=== PATIENT | female | born 1945 | race Caucasian/White ===

== ENCOUNTER 2018-01-30 10:50 | Emergency (ER) | payer MEDICARE, OTHER ==
[~2018-01-30] VITALS: Ht 165.1 cm; Wt 61.2 kg
[~2018-01-30 10:50] MED LIST: ACEBUTCAFT PO; ALEVE PM PO; ASCO500 PO; CALCAVITDA; CALCAVITDA PO; CALCIT950 PO; CITA20 PO; CYAN1000 PO; Citalopram HBr40 MG PO; DIAZ5 PO; DIPATRL; GABA300 PO; HYDR1TAB94 PO; META800; METO10 PO; MULT50FEL; MULVITMINF PO; MYRBETRIQ25 MG PO; Miralax17 GM PO; NAPR500; Naprosyn500 MG PO; Norco 5-325 Ta1 EACH PO; OMEP20ER PO; OMEPRAZOLE CAP 20M; OXYACE5T PO; OXYC5; OXYC5 PO; Omeprazole20 M1 PO; PRESERVISION A1 EACH; PROC10 PO; PROM25 PO; Percocet 5-3251 EACH PO; QUET100 PO; QUETIAPINE FUM100 MG PO; SERT50 PO; Sleep Aid25 M1; TIZANIDINE HCL2 MG PO; TOCO400 PO; XIIDRA1 EACH OP; [UNRECOGNIZED DRUG - REMARK]; [UNRECOGNIZED DRUG - REMARK]; [UNRECOGNIZED DRUG - REMARK] PO
== END 2018-01-30 13:39 | disposition home or self-care (01) ==
LOC: ER 10:50
DX: G43.909 Migraine, unspecified, not intractable, without status migrainosus (principal); F32.9 Major depressive disorder, single episode, unspecified; F17.210 Nicotine dependence, cigarettes, uncomplicated; Z79.899 Other long term (current) drug therapy
CPT/HCPCS: 96374; 96375; 99282-25; J1100; J1200; J1885; J2765; J7030

== ENCOUNTER 2018-04-14 13:19 | Emergency (ER) | payer MEDICARE, OTHER ==
[~2018-04-14] VITALS: Ht 165.1 cm; Wt 61.2 kg
[2018-04-14] MEDS ORDERED: Percocet 5-3251 EACH PO (14:30)
[2018-04-14] MEDS ORDERED: METCAR500 PO (14:44)
== END 2018-04-14 14:45 | disposition home or self-care (01) ==
LOC: ER 13:19
DX: S42.252A Displaced fracture of greater tuberosity of left humerus, initial encounter for closed fracture (principal); F32.9 Major depressive disorder, single episode, unspecified; F17.210 Nicotine dependence, cigarettes, uncomplicated; Z79.899 Other long term (current) drug therapy; W18.30XA Fall on same level, unspecified, initial encounter
CPT/HCPCS: 73060; 99283-25

== ENCOUNTER 2018-09-25 06:45 | Day surgery (SDC) | payer MEDICARE, OTHER ==
[~2018-09-25] VITALS: Ht 165.1 cm; Wt 60.8 kg
[~2018-09-25 06:45] MED LIST changes: +AREDS PO; +BLINK TEARS BOTHEYES; +CHOL10002 PO; +HAIR FORMULA T1 EACH PO; +METCAR500 PO; +ONE A DAY PO; +VITAMIN B122500 MC1 PO; +XYZAL5 MG PO; +[UNRECOGNIZED DRUG - OTHER] PO
--- NOTE | 2018-09-25 07:25 | NUR ---
History, Chart, Medications and Allergies reviewed before start of procedure. Patient confirms NPO status and agrees with scheduled surgery.
--- NOTE | 2018-09-25 08:04 | NUR ---
Patient reports completing Chlorhexadine shower X2 prior to admission to hospital. Surgical site prepped with 2% Chlorhexidine cloth wipe.
--- NOTE | 2018-09-25 08:20 | NUR ---
PATIENT GAVE HER GLASSES TO HER PRIOR TO GOING TO OR.
--- NOTE | 2018-09-25 12:02 | NUR ---
PT TO STEP APPROX 5 MINUTES AGO. C/O PAIN, NAUSEA, AND HAVING TO "PEE" IMMEDIATELY FALLS ASLEEP IF LEFT UNDISTURBED. PT RECEIVED IV FENTANYL JUST PRIOR TO TRANSFER TO UNIT. WILL MONITOR PAIN LEVELS. SATS 88-91 ON RA. OXYGEN AT 2 L APPLIED VIA NC.
--- NOTE | 2018-09-25 12:23 | NUR ---
TO BEDSIDE. PT STATES NAUSEA IMPROVED. SIPPING ON APPLE JUICE AT THIS TIME. EATING CRACKERS.
--- NOTE | 2018-09-25 12:28 | NUR ---
MEDICATED WITH ONE PERCOCET TABLET PER MD ORDERS FOR PAIN LEVEL OF 8/10
--- NOTE | 2018-09-25 12:40 | NUR ---
PT AMBULATED TO BATHROOM AND BACK WITH ASSIST. C/O PAIN WITH ACTIVITY BUT STEADY ON FEET. + VOID AND RETURN TO [facility]. ASSIST IN DRESSING PATIENT AT THIS TIME.
--- NOTE | 2018-09-25 12:52 | NUR ---
REVIEWED DISCHARGE INSTRUCTIONS WITH PATIENT AND , BOTH OF WHOM VERBALIZE UNDERSTANDING OF ALL. PT STATES SHE WANTS TO GO HOME AND FEELS ABLE TO DO SO WITHOUT DIFFICULTY. IV D/C x 2 SITES - TIPS INTACT. PT TOLERATED WELL. DC HOME VIA W/C WITH TO DRIVE HER.
--- NOTE | 2018-09-25 12:53 | NUR ---
PRIOR TO DC PT C/O "INDIGESTION" PAINS. DENIED CP OR RADIATION UP NECK, DOWN ARM, OR INTO BACK. STATES "IT GOES INTO MY STOMACH" "I THINK IT'S THE NAUSEA, JUST INDIGESTION." NO FURTHER ISSUES NOTED. VSS. NO BLEEDING NOTED.
--- NOTE | 2018-09-29 13:26 | NUR ---
09/29/18 1326 Bridget May OUT OF PACU TIME ENTERED PER PATIENT RECORD FOR PURPOSES OF VERIFICATION.
== END 2018-09-25 12:00 | disposition home or self-care (01) ==
LOC: ORSCMMR 06:45 → ORD 08:30 → ORSCMMR 08:30
PROVIDERS: Surgery
PROC: 0WUF4JZ Supplement Abdominal Wall with Synthetic Substitute, Percutaneous Endoscopic Approach (ICD-10-PCS; principal; 2018-09-25 08:30)
PROC: 8E0W4CZ Robotic Assisted Procedure of Trunk Region, Percutaneous Endoscopic Approach (ICD-10-PCS; principal; 2018-09-25 08:30)
DX: K43.0 Incisional hernia with obstruction, without gangrene (principal); K21.9 Gastro-esophageal reflux disease without esophagitis; F17.210 Nicotine dependence, cigarettes, uncomplicated; F32.9 Major depressive disorder, single episode, unspecified; Z79.899 Other long term (current) drug therapy
CPT/HCPCS: 49655; S2900; C1781; J0330; J0690; J1100; J2250; J2370; J2405; J2710; J2765; J3010; J7120

== ENCOUNTER 2019-01-29 08:14 | Emergency (ER) | payer MEDICARE, OTHER ==
[~2019-01-29] VITALS: Ht 165.1 cm; Wt 59.9 kg
== END 2019-01-29 11:10 | disposition home or self-care (01) ==
LOC: ER 08:14
DX: G43.909 Migraine, unspecified, not intractable, without status migrainosus (principal); J02.9 Acute pharyngitis, unspecified; F32.9 Major depressive disorder, single episode, unspecified; F17.210 Nicotine dependence, cigarettes, uncomplicated; Z79.899 Other long term (current) drug therapy
CPT/HCPCS: 96361; 96374; 96375; 99283-25; J1200; J1885; J2765; J7030

== ENCOUNTER 2019-07-26 12:41 | Emergency (ER) | payer OTHER ==
[~2019-07-26] VITALS: Ht 165.1 cm; Wt 59.0 kg
[2019-07-26 13:48] LABS: BASOPHILS ABSOLUTE AUTO 0.03 K/mm3 (0.00-0.23); BASOPHILS PERCENT AUTO 0 % (0-2); EOSINOPHILS ABSOLUTE AUTO 0.07 K/mm3 (0.00-0.68); EOSINOPHILS PERCENT AUTO 1 % (0-6); Hematocrit 45.2 % (33.0-51.0); IMMATURE GRAN ABSOLUTE AUTO 0.02 K/mm3 (0.00-0.10); IMMATURE GRAN PERCENT AUTO 0 % (0-1); LYMPHOCYTES ABSOLUTE AUTO 1.87 K/mm3 (0.84-5.20); LYMPHOCYTES PERCENT AUTO 19 % (21-46); MONOCYTES ABSOLUTE AUTO 0.53 K/mm3 (0.16-1.47); MONOCYTES PERCENT AUTO 5 % (4-13); Mean Corpuscular HGB 31.8 pg (26.0-34.0); Mean Corpuscular HGB Conc 33.2 g/dL (31.5-36.5); Mean Corpuscular Volume 96 fL (80-100); Mean Platelet Volume 10.2 fL (9.1-12.4); NEUTROPHILS ABSOLUTE AUTO 7.32 K/mm3 (1.96-9.15); NEUTROPHILS PERCENT AUTO 74 % (41-73); Platelet Count 266 K/mm3 (150-400); RDW Coefficient Variation 12.3 % (11.7-14.2); RDW Standard Deviation 44.1 fL (35.1-46.3); Red Blood Cell Count 4.72 M/mm3 (3.80-5.20); White Blood Cell Count 9.84 K/mm3 (4.00-11.30)
[2019-07-26 14:57] LABS: Alanine Aminotransfer (ALT/SGP 18 U/L (12-78); Albumin, Blood 3.9 g/dL (3.4-5.0); Albumin/Globulin Ratio 1.1 (0.8-1.8); Alk Phos 69 U/L (50-136); Anion Gap 7 mmol/L (6-16); Aspartate Aminotrans (AST/SGOT 14 U/L (12-37); Bilirubin, Total 0.5 mg/dL (0.1-1.0); Blood Urea Nitrogen 21 mg/dL (8-24); Bun/Creatinine Ratio 25.5 (12.0-20.0); CO2, Blood 27 mmol/L (21-32); Calcium, Blood 9.3 mg/dL (8.5-10.1); Chloride, Blood 106 mmol/L (98-108); Creatinine, Blood 0.82 mg/dL (0.40-1.00); Globulin, Blood 3.4 g/dL (2.2-4.0); Glomerular Filtration Rate >60 (60-); Glucose, Blood 101 mg/dL (70-99); Potassium, Blood 4.4 mmol/L (3.5-5.5); Sodium, Blood 140 mmol/L (136-145); Total Protein, Blood 7.3 g/dL (6.4-8.2); Troponin I <0.015 ng/mL (0.000-0.040)
[2019-07-26] MEDS ORDERED: HYDR1TAB94 PO (16:11)
[2019-07-26] MEDS ORDERED: IBUP600 PO (16:11)
== END 2019-07-26 16:12 | disposition home or self-care (01) ==
LOC: ER 12:41
PROVIDERS: Emergency Medicine
DX: S22.42XA Multiple fractures of ribs, left side, initial encounter for closed fracture (principal); S01.81XA Laceration without foreign body of other part of head, initial encounter; S01.411A Laceration without foreign body of right cheek and temporomandibular area, initial encounter; F17.210 Nicotine dependence, cigarettes, uncomplicated; F32.9 Major depressive disorder, single episode, unspecified; G43.909 Migraine, unspecified, not intractable, without status migrainosus; R01.1 Cardiac murmur, unspecified; Z79.899 Other long term (current) drug therapy; W19.XXXA Unspecified fall, initial encounter
CPT/HCPCS: 12014; 36415; 70450; 71101; 80053; 84484; 85025; 93005; 93010; 99284-25; A9270

== ENCOUNTER 2020-08-04 12:04 | Emergency (ER) | payer OTHER ==
[~2020-08-04] VITALS: Ht 165.1 cm; Wt 60.3 kg
[~2020-08-04 12:04] MED LIST changes: +IBUP600 PO
[2020-08-04] MEDS ORDERED: GABA100 PO (12:28)
[2020-08-04] MEDS ORDERED: PROM25 PO (14:48)
[2020-08-04] MEDS ORDERED: CELE100 PO (14:48)
== END 2020-08-04 15:10 | disposition home or self-care (01) ==
LOC: ER 12:04
DX: S06.0X0A Concussion without loss of consciousness, initial encounter (principal); S16.1XXA Strain of muscle, fascia and tendon at neck level, initial encounter; Z79.899 Other long term (current) drug therapy; F17.200 Nicotine dependence, unspecified, uncomplicated; W01.198A Fall on same level from slipping, tripping and stumbling with subsequent striking against other object, initial encounter
CPT/HCPCS: 70450; 72125; 99284-25; A9270

== ENCOUNTER 2020-12-27 15:29 | Inpatient (IN) | payer MEDICARE, OTHER ==
[~2020-12-27] VITALS: Ht 162.6 cm; Wt 58.5 kg
[~2020-12-27 15:29] MED LIST changes: +CELE100 PO; +GABA100 PO
[2020-12-27] MEDS ORDERED: ZOLOFT100 M5 PO (15:43)
[2020-12-27 15:48] LABS: BASOPHILS ABSOLUTE AUTO 0.05 K/mm3 (0.00-0.23); BASOPHILS PERCENT AUTO 1 % (0-2); EOSINOPHILS PERCENT AUTO 2 % (0-6); IMMATURE GRAN ABSOLUTE AUTO 0.08 K/mm3 (0.00-0.10); IMMATURE GRAN PERCENT AUTO 1 % (0-1); LYMPHOCYTES ABSOLUTE AUTO 2.39 K/mm3 (0.84-5.20); LYMPHOCYTES PERCENT AUTO 26 % (21-46); MONOCYTES ABSOLUTE AUTO 0.59 K/mm3 (0.16-1.47); MONOCYTES PERCENT AUTO 7 % (4-13); Mean Corpuscular HGB 31.7 pg (26.0-34.0); Mean Corpuscular HGB Conc 33.3 g/dL (31.5-36.5); Mean Corpuscular Volume 95 fL (80-100); Mean Platelet Volume 10.3 fL (9.1-12.4); NEUTROPHILS ABSOLUTE AUTO 5.73 K/mm3 (1.96-9.15); NEUTROPHILS PERCENT AUTO 63 % (41-73); Platelet Count 244 K/mm3 (150-400); RDW Coefficient Variation 13.2 % (11.7-14.2); RDW Standard Deviation 46.5 fL (35.1-46.3); White Blood Cell Count 9.04 K/mm3 (4.00-11.30)
[2020-12-27 16:14] LABS: Alanine Aminotransfer (ALT/SGP 22 U/L (12-78); Albumin, Blood 3.3 g/dL (3.4-5.0); Alk Phos 56 U/L (50-136); Anion Gap 2 mmol/L (6-16); Aspartate Aminotrans (AST/SGOT 17 U/L (12-37); Bilirubin, Total 0.4 mg/dL (0.1-1.0); Blood Urea Nitrogen 16 mg/dL (8-24); Bun/Creatinine Ratio 21.6 (12.0-20.0); CO2, Blood 31 mmol/L (21-32); Calcium, Blood 8.5 mg/dL (8.5-10.1); Chloride, Blood 106 mmol/L (98-108); Creatinine, Blood 0.74 mg/dL (0.40-1.00); Globulin, Blood 3.2 g/dL (2.2-4.0); Glomerular Filtration Rate >60 (60-); Glucose, Blood 112 mg/dL (70-99); Sodium, Blood 139 mmol/L (136-145); Total Protein, Blood 6.5 g/dL (6.4-8.2)
[2020-12-27] MEDS ORDERED: NEURONTIN300 MG PO (17:36)
[2020-12-27] MEDS ORDERED: OMEP20ER PO (17:37)
[2020-12-27 19:23] LABS: SARS-Cov-2 (COVID-19) PCR, MMC NEGATIVE (NEGATIVE)
[2020-12-28 04:40] LABS: BASOPHILS ABSOLUTE AUTO 0.04 K/mm3 (0.00-0.23); BASOPHILS PERCENT AUTO 0 % (0-2); EOSINOPHILS ABSOLUTE AUTO 0.19 K/mm3 (0.00-0.68); EOSINOPHILS PERCENT AUTO 2 % (0-6); Hematocrit 36.4 % (33.0-51.0); Hemoglobin 12.5 g/dL (11.5-16.0); IMMATURE GRAN ABSOLUTE AUTO 0.02 K/mm3 (0.00-0.10); IMMATURE GRAN PERCENT AUTO 0 % (0-1); LYMPHOCYTES ABSOLUTE AUTO 1.43 K/mm3 (0.84-5.20); LYMPHOCYTES PERCENT AUTO 15 % (21-46); MONOCYTES ABSOLUTE AUTO 0.64 K/mm3 (0.16-1.47); MONOCYTES PERCENT AUTO 7 % (4-13); Mean Corpuscular HGB 32.1 pg (26.0-34.0); Mean Corpuscular HGB Conc 34.3 g/dL (31.5-36.5); Mean Corpuscular Volume 93 fL (80-100); Mean Platelet Volume 10.4 fL (9.1-12.4); NEUTROPHILS ABSOLUTE AUTO 6.99 K/mm3 (1.96-9.15); NEUTROPHILS PERCENT AUTO 75 % (41-73); Platelet Count 196 K/mm3 (150-400); RDW Coefficient Variation 13.2 % (11.7-14.2); RDW Standard Deviation 45.4 fL (35.1-46.3); White Blood Cell Count 9.31 K/mm3 (4.00-11.30)
[2020-12-28 04:56] LABS: Anion Gap 3 mmol/L (6-16); Blood Urea Nitrogen 15 mg/dL (8-24); Bun/Creatinine Ratio 17.8 (12.0-20.0); CO2, Blood 29 mmol/L (21-32); Calcium, Blood 8.2 mg/dL (8.5-10.1); Chloride, Blood 105 mmol/L (98-108); Creatinine, Blood 0.84 mg/dL (0.40-1.00); Glomerular Filtration Rate >60 (60-); Glucose, Blood 102 mg/dL (70-99); Potassium, Blood 4.3 mmol/L (3.5-5.5); Sodium, Blood 137 mmol/L (136-145)
--- NOTE | 2020-12-28 07:16 | NUR ---
SHIFT SUMMARY S/P R HIP FX, A/O X4, VSS, TOLERATING PO BUT NPO SINCE MIDNIGHT PENDING SURGERY, PAIN WELL MANAGED PER EMAR ORTHO CONSULT W/ POSSIBLE SURGERY TODAY. NO ACUTE EVENTS THIS SHIFT, CALL LIGHT IN REACH, REPORT GIVEN TO DAY RN.
--- NOTE | 2020-12-28 11:50 | NUR ---
R FOREARM 18G IV FLUSHES WELL, L AC IV LEAKING AND REMOVED
--- NOTE | 2020-12-28 12:15 | NUR ---
History, Chart, Medications and Allergies reviewed before start of procedure.Patient confirms NPO status and agrees with scheduled surgery. Pre-Op teaching done. Pt verbalizes understanding.
--- NOTE | 2020-12-28 15:57 | NUR ---
POST OP S/P R DEX HIP ARTHRO. AWAKE, DENIES ANY PAIN AT THIS TIME, DENIES ANY NEW NUMBNESS OR TINGLING, ABLE TO MOVE TOES, LUNGS CLEAR T/O, HRR, ACTIVE BT'S X4, ABD SOFT, CLEAR LIQUIDS GIVEN, CONT. TO MONITOR VS AND ANY CHANGES.
--- NOTE | 2020-12-28 18:37 | NUR ---
SUMMARY DENIES ANY PAIN, DSG C/D/I, TOLERATED REGULAR DIET WELL, STATES "I FEEL 90% BETTER" PT RESTED MOST OF AFTERNOON, NO ACUTE CHANGES THIS SHIFT.
--- NOTE | 2020-12-29 05:55 | NUR ---
SHIFT SUMMARY POD1 R DEX HIP, A/O X4, VSS, TOLERATING PO, VOIDING VIA PIKE, ATTEMPTED BM ON BEDPAN BUT HAD NO OUTPUT, PAIN WELL MANAGED PER EMAR, NO ACUTE EVENTS THIS SHIFT. CALL LIGHT IN REACH, WILL CTM AND REPORT TO ONCOMING DAY RN.
--- NOTE | 2020-12-29 13:29 | NUR ---
12/29/20 1329 Elmira King VERIFICATIONS: EDIT CHART.
--- NOTE | 2020-12-29 18:01 | NUR ---
SUMMARY DSGS ON L SHOULDER, LLE, RLE AND R ARM CHANGED TODAY, PT TOLERATED WELL VSS, ATTMEPTED TO WORK W/ PT & OT TODAY BUT PT UNABLE TO STAND AND BEAR WEIGHT ON RLE DUE INCREASED PAIN IN R LATERAL AREA OF THE INCISION, PT DESCRIBES PAIN "ELECTRIC SHOCK" AND RELIEVED BY LYING BACK DOWN AND REST, PT ASSISTED TO DANGLE TODAY BUT HAS NOT BEEN UP, DR. GONZALES NOTIFIED, SEE NEW ORDERS FOR XRAYS, REPORTS NECK PAIN IS "BETTER" NO OTHER CHANGES THIS SHIFT.
--- NOTE | 2020-12-29 18:53 | NUR ---
PT REFUSED XRAY ORDERED, DR. GONZALES NOTIFIED.
--- NOTE | 2020-12-29 19:22 | NUR ---
SUMMARY PT/OT ATTEMPTED TO GET PT OOB TODAY BUT PT WAS NOT ABLE TO STAND DUE TO INCREASED PAIN ON R HIP AREA, PT DESCRIBES PAIN LIKE AN "ELECTRIC SHOCK" DOWN HER R HIP AND THIGH AREA, STATES PAIN IS MORE ON THE R LATERAL SIDE OF THE INCISION, DR. GONZALES NOTIFIED, XRAY ORDERED BUT THEN PT REFUSED TO GO STATES SHE DOESN'T WANT TO HAVE TO GET ON THE GURNEY AND THE PAIN WAS MORE INCISIONAL, DR. GONZALES NOTIFIED, PT ABLE TO DANGLE, REPORTS PAIN ON NECK IS "BETTER" NO OTHER CHANGES THIS SHIFT.
--- NOTE | 2020-12-30 06:25 | NUR ---
SHIFT SUMMARY POD2 R LUZMARIA, A/O X4, VSS, TOLERATING PO, VOIDING VIA PIKE TO BE REMOVED TODAY PER ORDER, BOWEL CARE PROVIDED AT START OF SHIFT PROVIDED PT W/ A BM THIS SHIFT, PAIN WELL MANAGED PER PATIENT REPORT. PLAN TO DC TO SNF TODAY. CALL LIGHT IN REACH, WILL CTM AND REPORT TO ONCOMING DAY RN.
--- NOTE | 2020-12-30 10:28 | NUR ---
DISCHARGE PLANNING: COVID TEST SENT PRIOR TO DC TO SNF. PIKE DC'D, AWAITING PT VOID. PT INCONTINENT AT BASELINE. ATTENDS ON.
[2020-12-30 12:00] LABS: SARS-Cov-2 (COVID-19) PCR, MMC NEGATIVE (NEGATIVE)
[2020-12-30] MEDS ORDERED: Acetaminophen325 M1 PO (13:30)
[2020-12-30] MEDS ORDERED: DOCU100 PO (13:31)
[2020-12-30] MEDS ORDERED: FAMO20 PO (13:31)
[2020-12-30] MEDS ORDERED: Nicoderm Cq1 EACH TOP (13:35)
[2020-12-30] MEDS ORDERED: OXAYDO5 M2 PO (13:35)
[2020-12-30] MEDS ORDERED: SENN187 PO (13:36)
--- NOTE | 2020-12-30 14:06 | NUR ---
DISCHARGE: PT DC TO SNF AT THIS TIME. NO IV. ORDERS AND MEDICATION FAXED TO FACILITY. REPORT CALLED TO ACCEPTING RN. PT TRANSFER VIA [facility].
== END 2020-12-30 14:06 | DRG 522 ==
LOC: ER 15:29 → SURS 17:30
PROVIDERS: Emergency Medicine; Nurse Practitioner Acute Care; Orthopaedic Surgery; ADMIT Internal Medicine
PROC: 0SRR0JA Replacement of Right Hip Joint, Femoral Surface with Synthetic Substitute, Uncemented, Open Approach (ICD-10-PCS; principal; 2020-12-28 12:30)
DX: S72.001A Fracture of unspecified part of neck of right femur, initial encounter for closed fracture (principal); Z20.822 Contact with and (suspected) exposure to COVID-19; R01.1 Cardiac murmur, unspecified; G43.909 Migraine, unspecified, not intractable, without status migrainosus; F32.9 Major depressive disorder, single episode, unspecified; G47.00 Insomnia, unspecified; F17.210 Nicotine dependence, cigarettes, uncomplicated; K21.9 Gastro-esophageal reflux disease without esophagitis; M54.9 Dorsalgia, unspecified; N39.3 Stress incontinence (female) (male); G89.29 Other chronic pain; W18.30XA Fall on same level, unspecified, initial encounter; Z79.899 Other long term (current) drug therapy; Z79.1 Long term (current) use of non-steroidal anti-inflammatories (NSAID)
CPT/HCPCS: 36415; 51702; 72170; 73502; 80048; 80053; 85025; 93005; 93010; 96374-59; 96375-59; 97110; 97162; 97166; 97530; 99285-25; A9270; C1713; C1776; J0171; J0690; J0735; J1100; J1170; J1885; J2405; J2704; J2795; J3010; J7030; J7120; U0004

== ENCOUNTER 2021-02-12 07:52 | Day surgery (SDC) | payer OTHER ==
[~2021-02-12] VITALS: Ht 165.1 cm; Wt 55.8 kg
[~2021-02-12 07:52] MED LIST changes: +Acetaminophen325 M1 PO; +DOCU100 PO; +FAMO20 PO; +NEURONTIN300 MG PO; +Nicoderm Cq1 EACH TOP; +OXAYDO5 M2 PO; +SENN187 PO; +ZOLOFT100 M5 PO
--- NOTE | 2021-02-12 09:10 | NUR ---
PT IN TO DAYSURGERY BY W/C BUT ABLE TO STAND AND GET WEIGHT. ASSISTED WITH GOWN. GIVEN WARM BLANKETS UPON REQUEST. History, Chart, Medications and Allergies reviewed before start of procedure. Lungs clear T/O to Auscultation. Patient confirms NPO status and agrees with scheduled surgery. Pre-Op teaching done. Pt verbalizes understanding. Patient States Post-Procedure ride home has been arranged WITH .
--- NOTE | 2021-02-12 11:50 | NUR ---
02/12/21 1150 Janet Dozier PATIENT STATES. i DO NOT WANT TO KEEP MY HADWARE." VANDANA DOZIER RN.
--- NOTE | 2021-02-12 13:51 | NUR ---
1315- C/O NAUSEA, NO EMESIS. WILL GIVE ANTIEMETICS PER ORDER. C/O LEFT HIP PAIN, RATES 5/10, UNABLE TO DESCRIBE FURTHER, MOANING. WILL TREAT WITH ANALGESICS PER ORDER AND CONTINUE TO MONITOR FOR EFFECT. 1350- PATIENT DENIES NAUSEA, AND STATES LEFT HIP PAIN IMPROVING AND NOW RATES 4/10. RESTING QUIETLY WITH EYES CLOSED. ENCOURAGED TO COUGH AND CLEAR THROAT TO HELP IMPROVE BIOX. BIOX IMPROVES WITH COUGHING. BREATHING RA. RESP EVEN AND UNLABORED.
--- NOTE | 2021-02-12 15:15 | NUR ---
PT TO STEP c L HIP PAIN. MEDICATED c OXYCODONE 5 MG PO. NAUSEA RESOLVED p MEDS IN PACU. L HIP DRESSING CDI. PT GIVEN FOOD AND DRINK s DIFFICULTY. PT SITS AT END OF BED c ASSISTANCE, ABLE TO AMBULATE TO RESTROOM c SLOW GAIT/WALKER. INCREASED PAIN c MOVEMENT. PT DRESSED IN RESTROOM, TO WC c WALKER. GIVEN RX AND DC INSTRUCTIONS. PT VERBALIZES AN UNDERSTANDING s QUESTIONS. IV X 2 DC, CATH INTACT AND PRESSURE DRESSING APPLIED. OTD IN NAD VIA WC TO SAFE RIDE HOME. AND NEIGHBOR VERBALIZES AN UNDERSTANDING OF INSTRUCTIONS s QUESTIONS.
== END 2021-02-12 23:02 | disposition home or self-care (01) ==
LOC: ORSCMMR 07:52 → ORD 09:30 → ORSCMMR 10:30 → ORD 11:00 → ORSCMMR 23:02
PROVIDERS: Orthopaedic Surgery
PROC: 0SPB04Z Removal of Internal Fixation Device from Left Hip Joint, Open Approach (ICD-10-PCS; principal; 2021-02-12 10:30)
DX: M25.552 Pain in left hip (principal); T84.9XXA Unspecified complication of internal orthopedic prosthetic device, implant and graft, initial encounter; J44.9 Chronic obstructive pulmonary disease, unspecified; F32.9 Major depressive disorder, single episode, unspecified; F17.210 Nicotine dependence, cigarettes, uncomplicated
CPT/HCPCS: A9270; C1713; J0171; J0690; J1100; J2370; J2405; J2704; J2765; J3010; J7120

== ENCOUNTER 2021-08-17 18:26 | Emergency (ER) | payer OTHER ==
[~2021-08-17] VITALS: Ht 165.1 cm; Wt 54.4 kg
[2021-08-17 19:17] LABS: BASOPHILS ABSOLUTE AUTO 0.06 K/mm3 (0.00-0.23); BASOPHILS PERCENT AUTO 1 % (0-2); EOSINOPHILS ABSOLUTE AUTO 0.21 K/mm3 (0.00-0.68); EOSINOPHILS PERCENT AUTO 3 % (0-6); Hematocrit 41.8 % (33.0-51.0); Hemoglobin 13.9 g/dL (11.5-16.0); IMMATURE GRAN ABSOLUTE AUTO 0.02 K/mm3 (0.00-0.10); IMMATURE GRAN PERCENT AUTO 0 % (0-1); LYMPHOCYTES ABSOLUTE AUTO 2.57 K/mm3 (0.84-5.20); LYMPHOCYTES PERCENT AUTO 34 % (21-46); MONOCYTES ABSOLUTE AUTO 0.51 K/mm3 (0.16-1.47); MONOCYTES PERCENT AUTO 7 % (4-13); Mean Corpuscular HGB 31.7 pg (26.0-34.0); Mean Corpuscular HGB Conc 33.3 g/dL (31.5-36.5); Mean Corpuscular Volume 95 fL (80-100); Mean Platelet Volume 10.7 fL (9.1-12.4); NEUTROPHILS ABSOLUTE AUTO 4.14 K/mm3 (1.96-9.15); NEUTROPHILS PERCENT AUTO 55 % (41-73); Platelet Count 324 K/mm3 (150-400); RDW Coefficient Variation 13.9 % (11.7-14.2); RDW Standard Deviation 49.1 fL (35.1-46.3); Red Blood Cell Count 4.38 M/mm3 (3.80-5.20); White Blood Cell Count 7.51 K/mm3 (4.00-11.30)
[2021-08-17 19:39] LABS: Alanine Aminotransfer (ALT/SGP 13 U/L (12-78); Albumin, Blood 3.5 g/dL (3.4-5.0); Albumin/Globulin Ratio 1.1 (0.8-1.8); Alk Phos 66 U/L (50-136); Anion Gap 3 mmol/L (6-16); Aspartate Aminotrans (AST/SGOT 13 U/L (12-37); Bilirubin, Total 0.3 mg/dL (0.1-1.0); Blood Urea Nitrogen 14 mg/dL (8-24); Bun/Creatinine Ratio 18.8 (12.0-20.0); CO2, Blood 31 mmol/L (21-32); Calcium, Blood 8.9 mg/dL (8.5-10.1); Chloride, Blood 109 mmol/L (98-108); Creatinine, Blood 0.74 mg/dL (0.40-1.00); Globulin, Blood 3.1 g/dL (2.2-4.0); Glomerular Filtration Rate >60 (60-); Glucose, Blood 97 mg/dL (70-99); Potassium, Blood 3.9 mmol/L (3.5-5.5); Sodium, Blood 143 mmol/L (136-145); Total Protein, Blood 6.6 g/dL (6.4-8.2)
== END 2021-08-17 20:36 | disposition left against medical advice (07) ==
LOC: ER 18:26
PROVIDERS: Physician Assistant
DX: R07.81 Pleurodynia (principal); Z53.21 Procedure and treatment not carried out due to patient leaving prior to being seen by health care provider
CPT/HCPCS: 71045; 80053; 84484; 85025; 93005; 93010; 99284-25

== ENCOUNTER → 2022-06-24 | Outpatient (CLI) | payer OTHER ==
[2022-06-24 16:04] LABS: BASOPHILS ABSOLUTE AUTO 0.05 K/mm3 (0.00-0.23); BASOPHILS PERCENT AUTO 1 % (0-2); EOSINOPHILS PERCENT AUTO 1 % (0-6); Hematocrit 42.6 % (33.0-51.0); IMMATURE GRAN ABSOLUTE AUTO 0.03 K/mm3 (0.00-0.10); IMMATURE GRAN PERCENT AUTO 0 % (0-1); LYMPHOCYTES ABSOLUTE AUTO 2.42 K/mm3 (0.84-5.20); LYMPHOCYTES PERCENT AUTO 25 % (21-46); MONOCYTES ABSOLUTE AUTO 0.54 K/mm3 (0.16-1.47); MONOCYTES PERCENT AUTO 6 % (4-13); Mean Corpuscular HGB 33.4 pg (26.0-34.0); Mean Corpuscular HGB Conc 35.2 g/dL (31.5-36.5); Mean Corpuscular Volume 95 fL (80-100); Mean Platelet Volume 10.5 fL (9.1-12.4); NEUTROPHILS ABSOLUTE AUTO 6.39 K/mm3 (1.96-9.15); NEUTROPHILS PERCENT AUTO 67 % (41-73); Platelet Count 264 K/mm3 (150-400); RDW Coefficient Variation 12.8 % (11.7-14.2); Red Blood Cell Count 4.49 M/mm3 (3.80-5.20); White Blood Cell Count 9.53 K/mm3 (4.00-11.30)
[2022-06-24 16:22] LABS: Albumin, Blood 3.6 g/dL (3.4-5.0); Albumin/Globulin Ratio 1.1 (0.8-1.8); Bilirubin, Total 0.4 mg/dL (0.1-1.0); Calcium, Blood 8.9 mg/dL (8.5-10.1); Creatinine, Blood 0.85 mg/dL (0.40-1.00); Globulin, Blood 3.3 g/dL (2.2-4.0); Phosphorus, Blood 3.2 mg/dL (2.5-4.9); Thyroid Stimulating Hormone 0.804 uIU/mL (0.360-4.800); Total Protein, Blood 6.9 g/dL (6.4-8.2)
== END | disposition home or self-care (01) ==
LOC: LAB SHORT 15:58
PROVIDERS: Family Medicine
DX: R41.3 Other amnesia (principal)
CPT/HCPCS: 80053; 82607; 82746; 84100; 84443; 85025; 86592

== ENCOUNTER 2024-05-03 12:38 | Inpatient (IN) | payer OTHER ==
[~2024-05-03] VITALS: Ht 162.6 cm; Wt 52.3 kg
[2024-05-03 16:17] LABS: BASOPHILS ABSOLUTE AUTO 0.04 K/mm3 (0.00-0.23); BASOPHILS PERCENT AUTO 0 % (0-2); EOSINOPHILS ABSOLUTE AUTO 0.16 K/mm3 (0.00-0.68); EOSINOPHILS PERCENT AUTO 2 % (0-6); Hematocrit 42.7 % (33.0-51.0); Hemoglobin 14.5 g/dL (11.5-16.0); IMMATURE GRAN ABSOLUTE AUTO 0.03 K/mm3 (0.00-0.10); IMMATURE GRAN PERCENT AUTO 0 % (0-1); LYMPHOCYTES PERCENT AUTO 27 % (21-46); MONOCYTES ABSOLUTE AUTO 0.56 K/mm3 (0.16-1.47); MONOCYTES PERCENT AUTO 6 % (4-13); Mean Corpuscular HGB 32.4 pg (26.0-34.0); Mean Corpuscular Volume 96 fL (80-100); Mean Platelet Volume 10.3 fL (9.1-12.4); NEUTROPHILS ABSOLUTE AUTO 6.38 K/mm3 (1.96-9.15); NEUTROPHILS PERCENT AUTO 65 % (41-73); Platelet Count 376 K/mm3 (150-400); RDW Coefficient Variation 12.7 % (11.7-14.2); RDW Standard Deviation 44.9 fL (35.1-46.3); Red Blood Cell Count 4.47 M/mm3 (3.80-5.20); White Blood Cell Count 9.87 K/mm3 (4.00-11.30)
[2024-05-03 16:37] LABS: Albumin, Blood 3.4 g/dL (3.4-5.0); Bilirubin, Total 0.5 mg/dL (0.1-1.0); Bun/Creatinine Ratio 22.3 (12.0-20.0); Calcium, Blood 9.3 mg/dL (8.5-10.1); Creatinine, Blood 0.72 mg/dL (0.40-1.00); Globulin, Blood 3.5 g/dL (2.2-4.0); Potassium, Blood 4.1 mmol/L (3.5-5.5); Total Protein, Blood 6.9 g/dL (6.4-8.2)
[2024-05-03] MEDS ORDERED: Ondansetron HCl 2 MG / ML 2ML Vial IV PRN (20:15)
[2024-05-03] MEDS ORDERED: NS 1,000 ML IV SCH (20:15)
[2024-05-03] MEDS ORDERED: FLU VACC TS2024-25(6MOS UP)/PF 45 MCG/0.5 ML SYRINGE IM ONE (20:15)
[2024-05-03] MEDS ORDERED: Acetaminophen 325 MG TABLET PO PRN (20:20)
--- NOTE | 2024-05-03 21:00 | NUR ---
ARRIVAL PT NEW ADMIT FROM THE ER W/L HIP FX. ARRIVED A/OX3-4. PLEASENT AND COOPERATIVE. LLE NOTED TO BE THE SAME LENGTH RLE. PT ABLE TO MOVE THIS EXTREMITY W/ EXTREME PAIN. GOOD PULSE. UNABLE TO COMPLETE MED REC, NEED TO CONTACT PTS PHARMACY. [facility] [place]. PLAN TO MEDICATE PER EMAR, REPOSITION TOLLERATED, IVF PER EMAR, AND PAIN MEDICATION.
[2024-05-03 21:59] VITALS: BP 125/69
[2024-05-04 02:09] VITALS: BP 114/68
[2024-05-04 02:10] VITALS: BP 114/68
[2024-05-04 02:44] LABS: Influenza A, PCR NEGATIVE (NEGATIVE); Influenza B, PCR NEGATIVE (NEGATIVE); Resp Syncytial Virus, PCR NEGATIVE (NEGATIVE); SARS-Cov-2 (COVID-19) PCR, MMC NEGATIVE (NEGATIVE)
--- NOTE | 2024-05-04 04:11 | NUR ---
SHIFT SUMMARY VSS. PT HAS BEEN NPO SINCE 0000 IN PREPERATION FOR SURGERY TODAY. SURGICAL [place]OWN COMPLETE. PT MEDICATED WITH TYLENOL FOR A HEADACHE. LLE REMAINS PAINFUL BUT TOLLERABLE. NO ACUTE EVENTS T/O THE NIGHT.
[2024-05-04] MEDS ORDERED: Omeprazole 20 MG CapCR PO SCH (06:00)
[2024-05-04 07:54] VITALS: BP 121/80
[2024-05-04] MEDS ORDERED: Sertraline HCl 100 MG Tab PO SCH (09:00)
[2024-05-04 15:01] VITALS: BP 128/73
[2024-05-04] MEDS ORDERED: CeFAZolin Sodium 2,000 MG in NS 100 ML IV SCH (15:55)
[2024-05-04] MEDS ORDERED: Lactated Ringer's 1,000 ML IV SCH (15:55)
--- NOTE | 2024-05-04 18:21 | NUR ---
Shift Summary Pt resting in bed throughout the day. Respirations even and unlabored. Advanced to regular diet once plans for surgery were established for later this week. VSS. PPP. A&O 2-3, forgetful. Reoriented as needed throughout the day. Pain managed. Eating/drinking/voiding.
[2024-05-04 20:33] VITALS: BP 117/75
[2024-05-05 04:15] VITALS: BP 142/66
[2024-05-05 04:49] LABS: Hemoglobin 12.4 g/dL (11.5-16.0); Mean Corpuscular HGB Conc 33.5 g/dL (31.5-36.5); Mean Corpuscular Volume 96 fL (80-100); Mean Platelet Volume 10.1 fL (9.1-12.4); Platelet Count 304 K/mm3 (150-400); RDW Coefficient Variation 12.6 % (11.7-14.2); RDW Standard Deviation 43.8 fL (35.1-46.3); Red Blood Cell Count 3.87 M/mm3 (3.80-5.20); White Blood Cell Count 8.62 K/mm3 (4.00-11.30)
--- NOTE | 2024-05-05 06:23 | NUR ---
SHIFT SUMMARY NOC. PT A/O X3, UNABLE TO STATE DATE/TIME, PT FORGETFUL AT TIMES. PT ADMITTED FOR LEFT FEMORAL NECK FX. PLAN IS FOR SURGICAL INTERVENTION 05/06/24. PT MEDICATED FOR PAIN X1 WITH REPORTED RELIEF OF SX. PT INCONTINENT OF URINE, PUREWICK PLACED TO PROTECT SKIN. BED IN LOWEST POSITION, CALL LIGHT IN REACH.
[2024-05-05 07:15] VITALS: BP 137/74
[2024-05-05 14:11] VITALS: BP 111/60
--- NOTE | 2024-05-05 17:23 | NUR ---
Shift Summary No acute events noted today. Purewick remains in place. A&O x3. Becomes forgetful at times. Pleasent mood. VSS. PPP. Wiggles toes. Denies n/t. Eating/drinking/voiding without issues. Denies n/v. Pain managed at this time. Bed alarm on. Call light within reach.
[2024-05-05 19:09] VITALS: BP 122/61
[2024-05-06] VITALS (15 sets, daily range): BP systolic 108–167; BP diastolic 56–91
--- NOTE | 2024-05-06 05:27 | NUR ---
SHIFT SUMMARY NOC. PT A/OX3, UNABLE TO STATE DATE/TIME. PT ADMITTED FOR LEFT FEMORAL NECK FX. PLAN FOR SURGERY TODAY. PT NPO SINCE 0000. PT MEDICATED FOR PAIN X1 WITH REPORTED RELIEF OF SX. PT INCONTINENT OF URINE, PUREWICK IN PLACE. BED ALARM SET FOR SAFETY, PT ON BEDREST. BED IN LOWEST POSITION, CALL LIGHT IN REACH.
--- NOTE | 2024-05-06 11:55 | NUR ---
PT TO DAY SURGERY AT THIS TIME.
[2024-05-06] MEDS ORDERED: Lactated Ringer's 1,000 ML IV SCH (12:00)
[2024-05-06] MEDS ORDERED: Peg 400/Hypromellose/Glycerin 15 DROP/ML BTL BOTHEYES PRN (12:15)
[2024-05-06] MEDS ORDERED: CeFAZolin Sodium 2,000 MG in NS 100 ML IV SCH ×2 (12:20→21:00)
[2024-05-06] MEDS ORDERED: CeFAZolin Sodium 2,000 MG VIAL ONE (12:33)
[2024-05-06] MEDS ORDERED: Ipratropium/Albuterol SulF 2.5-0.5MG/3 ML Amp INH SCH (12:40)
[2024-05-06] MEDS ORDERED: Midazolam HCl 1MG / ML 2ML Vial IV SCH (12:40)
[2024-05-06] MEDS ORDERED: Bupivacaine 0.5% HCl 5 MG/ML 30MLVIAL ONE (12:53)
[2024-05-06] MEDS ORDERED: EpiNEPhrine 1 MG/1 ML 1ML Vial ONE (12:53)
[2024-05-06] MEDS ORDERED: propofoL 20 ML IV ONE (12:57)
[2024-05-06] MEDS ORDERED: FentaNYL Citrate 50 MCG/ML 2 ML Injection ONE (12:58)
[2024-05-06] MEDS ORDERED: Phenylephrine HCl 10mg/ml 1 ml Vial ONE (13:04)
[2024-05-06] MEDS ORDERED: Rocuronium Bromide 10 MG/ML 5ML Injection IV ONE (13:04)
[2024-05-06] MEDS ORDERED: SuccINYLCHOLINE Chloride 100 MG/5 ML 5MLSYR ONE (13:04)
[2024-05-06] MEDS ORDERED: Dexamethasone Sod Phos 10 MG/ML 1ML VIAL ONE (13:09)
[2024-05-06] MEDS ORDERED: Ondansetron HCl 2 MG / ML 2ML Vial ONE (13:09)
[2024-05-06] MEDS ORDERED: Tranexamic Acid 100 ML IV ONE (13:16)
[2024-05-06] MEDS ORDERED: CeFAZolin Sodium 1000 mg Vial ONE (13:56)
[2024-05-06] MEDS ORDERED: Sugammadex Sodium 200 MG/2ML SDV (100 MG/ML) ONE (13:57)
[2024-05-06] MEDS ORDERED: Metoclopramide HCl 5MG / ML 2ML Vial ONE (14:18)
--- NOTE | 2024-05-06 15:00 | NUR ---
PT BACK TO ROOM 215 FROM PACU, CALL LIGHT IN REACH.
--- NOTE | 2024-05-06 17:08 | NUR ---
SHIFT SUMMARY PT IS POD0 FOR L HIP REPAIR. DRESSINGS REMAIN C/D/I. PT VOIDED APPROPRIATELY POST OP USING BEDPAN. VSS. PAIN MANAGED W/ TYLENOL, NO COMPLAINTS OF NAUSEA. PT ABLE TO REPOSITION HERSELF IN BED. CAP REFILL IN L TOES 2 SECS, PT ABLE TO WIGGLE TOES. IV FLUIDS GIVEN PER EMAR. PT TOLERATING PO FLUIDS. CALL LIGHT IN REACH, BED ALARM ON DUE TO FORGETFULNESS.
[2024-05-07 00:30] VITALS: BP 109/59
[2024-05-07 03:57] VITALS: BP 108/66
--- NOTE | 2024-05-07 04:52 | NUR ---
SHIFT SUMMARY PT IS POD 1 FROM LEFT TOTAL HIP REPAIR. PT IS A&O X3, CAN BE FORGETFUL AT TIMES. BED ALARM ON FOR SAFETY. VSS, AFEBRILE, SPO2 >90% ON RA. DRESSING TO L HIP IS C/D/I. NO ACUTE EVENTS THIS SHIFT. PT IS RESTING IN BED, BREATHING IS EVEN AND UNLABORED, CALL LIGHT IN REACH.
[2024-05-07 05:16] LABS: Hematocrit 33.6 % (33.0-51.0); Hemoglobin 11.6 g/dL (11.5-16.0); Mean Corpuscular HGB Conc 34.5 g/dL (31.5-36.5); Mean Corpuscular Volume 96 fL (80-100); Mean Platelet Volume 10.6 fL (9.1-12.4); Platelet Count 268 K/mm3 (150-400); RDW Coefficient Variation 13.1 % (11.7-14.2); RDW Standard Deviation 45.6 fL (35.1-46.3); Red Blood Cell Count 3.52 M/mm3 (3.80-5.20); White Blood Cell Count 13.64 K/mm3 (4.00-11.30)
[2024-05-07 08:03] VITALS: BP 102/61
[2024-05-07] MEDS ORDERED: DULO30 PO (10:35)
[2024-05-07] MEDS ORDERED: PREG75 PO (10:35)
[2024-05-07] MEDS ORDERED: ABILIFY MYCITE2 M2 PO (10:36)
[2024-05-07] MEDS ORDERED: Pregabalin 75 MG Cap PO SCH (11:00)
--- NOTE | 2024-05-07 11:00 | NUR ---
PT HAVING PAIN NOT RELIEVED BY PO TYLENOL, NOTIFIED DR. SULLIVAN, DR. SULLIVAN TO PUT IN ORDERS FOR ADDITIONAL PAIN MEDS.
[2024-05-07] MEDS ORDERED: HYDROcodone 5-APAP 325 TAB PO PRN (11:35)
[2024-05-07 15:50] VITALS: BP 103/63
[2024-05-07] MEDS ORDERED: Loratadine 10 MG Tab PO SCH (16:00)
--- NOTE | 2024-05-07 18:18 | NUR ---
SHIFT SUMMARY PT IS POD1 FOR L HIP PINNING. PT WORKED W/ PT TODAY, 1 ASST PIVOT TO CHAIR W/ FWW AND GB. PT HAS BEEN A/O X4 TODAY, COOPERATIVE W/ CARE. PT COMPLAINED OF ALLERGIES THROUGHOUT SHIFT, RUNNY NOSE AND ITCHY EYES, NOTIFIED DR. SULLIVAN AND RECIEVED ORDER FOR CLARITIN. PT RESTING IN RECLINER, HAVING INC/CONT VOIDS IN ATTENDS. TOLERATING REG DIET AND FLUIDS, SALINE LOCKED. VSS. CALLING APPROPRIATELY. PLAN TO DC TO SNF.
[2024-05-07 19:26] VITALS: BP 113/58
[2024-05-07] MEDS ORDERED: Heparin Sodium,Porcine 5,000 UNIT/0.5 ML SDV SC SCH (21:00)
[2024-05-07] MEDS ORDERED: ARIPiprazole 2 MG Tablet PO SCH (21:00)
[2024-05-08 04:13] VITALS: BP 128/66
[2024-05-08 04:38] LABS: Hematocrit 36.5 % (33.0-51.0); Mean Corpuscular HGB 31.9 pg (26.0-34.0); Mean Corpuscular HGB Conc 32.9 g/dL (31.5-36.5); Mean Corpuscular Volume 97 fL (80-100); Mean Platelet Volume 10.5 fL (9.1-12.4); Platelet Count 277 K/mm3 (150-400); RDW Coefficient Variation 13.2 % (11.7-14.2); RDW Standard Deviation 47.8 fL (35.1-46.3); Red Blood Cell Count 3.76 M/mm3 (3.80-5.20); White Blood Cell Count 11.13 K/mm3 (4.00-11.30)
--- NOTE | 2024-05-08 06:37 | NUR ---
SHIFT SUMMARY PT S/P LEFT HIP PINNING, PT HAS RESTED T/O THE NIGHT. SURGICAL SITE WNL. PAIN MANAGED WITH MEDS PER EMAR. VITALS STABLE. PLAN OF CARE REMAINS UNCHANGED. BED IN LOWEST POSITION, BED ALARM ON CARE. CALL LIGHT WITHIN REACH.
[2024-05-08 07:18] VITALS: BP 136/73
[2024-05-08] MEDS ORDERED: DULoxetine HCL 30 MG Cap DR PO SCH (09:00)
--- NOTE | 2024-05-08 12:37 | NUR ---
THERAPY: THERAPY IN TO MOBILIZE PATIENT WHO HAS BEEN IN THE CHAIR SINCE THIS AM. PT STATES SHE IS AT A TOLERABLE LEVEL OF PAIN AT THIS TIME.
[2024-05-08 15:04] VITALS: BP 109/68
--- NOTE | 2024-05-08 18:18 | NUR ---
PT HAS BEEN STABLE THIS SHIFT. PT FORGETFUL, BED ALARM IN USE. PT WORKED WITH STAFF AND THERAPY TO MOBILIZE AND SIT IN CHAIR. PT DRESSING CDI. PAIN CONTROLLED WITH PRN OXYCODONE. PT DENIES PAIN UNLESS WALKING. 2 ASSIST OOB. TOLERATING DIET. IV SL X2. INCONTINENT WITH ATTENDS IN PLACE. PLAN FOR SNF AT DISCHARGE.
[2024-05-08 19:18] VITALS: BP 102/61
--- NOTE | 2024-05-08 19:54 | NUR ---
REPORT GIVEN TO CHUY CUELLAR TO ASSUME CARE OF PT AT THIS TIME.
[2024-05-09 04:17] VITALS: BP 118/62
--- NOTE | 2024-05-09 04:19 | NUR ---
SHIFT SUMMARY LUCINA WAS ASLEEP BUT EASLIY ROUSED, AND FULLY ORIENTED ON ASSESMENT. AQUACEL TO L HIP C/D/I, DISTAL CIRCULATION INTACT. PT PAIN MANAGED TOLERABLY WELL, PT IS HESITANT TO ACCEPT NARCOTIC PAIN MANAGEMENT. UNEVENTFUL SHIFT, NO ACUTE EVENTS, NO NOTED CHANGES TO PT CONDITION.
[2024-05-09 07:02] VITALS: BP 121/71
[2024-05-09 15:14] VITALS: BP 119/70
[2024-05-09 19:14] VITALS: BP 127/69
--- NOTE | 2024-05-09 20:05 | NUR ---
SHIFT SUMMARY PT IS POD#3 FROM L HIP PINNING. PAIN MANAGED WITH TYLENOL. PT IS A 1 ASSIST. SHE SAT UP TO THE CHIAR FOR MUCH OF THE DAY AND TOLERATED WELL. PT HAS BEEN ALERT/ORIENTEDX4, SHE CALLS APPROPRIATELY. DC TO SNF WHEN STABLE. REPORT GIVEN TO ARMAAN CUELLAR.
[2024-05-10 04:25] VITALS: BP 128/71
--- NOTE | 2024-05-10 05:01 | NUR ---
SHIFT SUMMARY PT IS POD4 FOR L HIP PINNING. PT COMPLAINED OF SOME HIP PAIN AND A HEADACHE EARLY THIS SHIFT, MEDICATED ONCE FOR PAIN AND PT WAS ABLE TO SLEEP MOST OF THE NIGHT. 1 ASST W/ FWW AND GB TO AMBULATE. VSS. SOME SWELLING PRESENT TO L HIP, DRESSINGS C/D/I. PT USING CALL LIGHT APPROPRIATELY. PLAN TO D/C TO SNF.
[2024-05-10 07:11] VITALS: BP 121/62
[2024-05-10] MEDS ORDERED: Norco 5-325 Ta1 EACH PO (08:48)
[2024-05-10] MEDS ORDERED: ALLERCLEAR10 MG PO (08:49)
--- NOTE | 2024-05-10 12:39 | NUR ---
DISCHARGE NOTE POD 4 L HIP PINNING. INCISION SITE COVERED WITH AQUACEL C/D/I. VSS. PAIN MANAGED. EATING/DRINKING/VOIDING WITHOUT DIFFICULTY. A&O 3-4. WORKED WITH PHYSICAL THERAPY THIS MORNING. WHEELED OUT TO TRANSPORTATION VEHICLE VIA WHEELCHAIR, WHERE SHE WILL BE TAKEN TO SNF.
== END 2024-05-10 12:37 | DRG 482 ==
LOC: ER 12:38 → ERHOLD 20:14 → SURS 20:14
PROVIDERS: Internal Medicine; Nurse Practitioner Acute Care; Orthopaedic Surgery; Physician Assistant; ADMIT Internal Medicine
PROC: 0QS706Z Reposition Left Upper Femur with Intramedullary Internal Fixation Device, Open Approach (ICD-10-PCS; principal; 2024-05-06 12:30)
DX: S72.002A Fracture of unspecified part of neck of left femur, initial encounter for closed fracture (principal); F03.90 Unspecified dementia, unspecified severity, without behavioral disturbance, psychotic disturbance, mood disturbance, and anxiety; R06.89 Other abnormalities of breathing; K21.9 Gastro-esophageal reflux disease without esophagitis; F32.A Depression, unspecified; G43.909 Migraine, unspecified, not intractable, without status migrainosus; F17.210 Nicotine dependence, cigarettes, uncomplicated; J44.9 Chronic obstructive pulmonary disease, unspecified; I10 Essential (primary) hypertension; X50.0XXA Overexertion from strenuous movement or load, initial encounter
CPT/HCPCS: 0241U; 36415; 71045; 73502; 73552; 73700; 80053; 85025; 85027; 97110; 97162; 97530; 99285-25; A9270; C1713; C1769; J0171; J0330; J0690; J1100; J1644; J2250; J2371; J2405; J2704; J2765; J3010; J7030; J7120

== ENCOUNTER 2024-06-11 03:36 | Observation (INO) | payer OTHER ==
[~2024-06-11] VITALS: Ht 162.6 cm; Wt 50.6 kg
[~2024-06-11 03:36] MED LIST changes: +ABILIFY MYCITE2 M2 PO; +ALLERCLEAR10 MG PO; +DULO30 PO; +PREG75 PO
[2024-06-11 05:40] LABS: Source, Urine Clean Catch
[2024-06-11 05:42] LABS: BASOPHILS ABSOLUTE AUTO 0.06 K/mm3 (0.00-0.23); BASOPHILS PERCENT AUTO 1 % (0-2); EOSINOPHILS ABSOLUTE AUTO 0.25 K/mm3 (0.00-0.68); EOSINOPHILS PERCENT AUTO 2 % (0-6); Hematocrit 41.1 % (33.0-51.0); Hemoglobin 13.6 g/dL (11.5-16.0); IMMATURE GRAN ABSOLUTE AUTO 0.04 K/mm3 (0.00-0.10); IMMATURE GRAN PERCENT AUTO 0 % (0-1); LYMPHOCYTES ABSOLUTE AUTO 2.01 K/mm3 (0.84-5.20); LYMPHOCYTES PERCENT AUTO 19 % (21-46); MONOCYTES ABSOLUTE AUTO 0.75 K/mm3 (0.16-1.47); MONOCYTES PERCENT AUTO 7 % (4-13); Mean Corpuscular HGB 32.4 pg (26.0-34.0); Mean Corpuscular HGB Conc 33.1 g/dL (31.5-36.5); Mean Corpuscular Volume 98 fL (80-100); Mean Platelet Volume 9.8 fL (9.1-12.4); NEUTROPHILS ABSOLUTE AUTO 7.45 K/mm3 (1.96-9.15); NEUTROPHILS PERCENT AUTO 71 % (41-73); Platelet Count 297 K/mm3 (150-400); RDW Coefficient Variation 13.3 % (11.7-14.2); RDW Standard Deviation 47.5 fL (35.1-46.3); White Blood Cell Count 10.56 K/mm3 (4.00-11.30)
[2024-06-11 05:49] LABS: Appearance, Urine Clear (Clear); Bilirubin, Urine Neg (Neg); Blood, Urine Neg (Neg); Color, Urine Yellow (P-Yellow); Glucose Qualitative, Urine Neg (Neg); Ketones, Urine Neg (Neg); Leukocyte Esterase, Urine 2+ (Neg); Nitrite, Urine Pos (Neg); Protein, Urine Neg (Neg); Specific Gravity, Urine 1.015 (1.003-1.022); Urobilinogen, Urine NORM (Normal)
[2024-06-11 06:01] LABS: Albumin, Blood 3.3 g/dL (3.4-5.0); Albumin/Globulin Ratio 0.8 (0.8-1.8); Bilirubin, Total 0.4 mg/dL (0.1-1.0); Bun/Creatinine Ratio 17.5 (12.0-20.0); Calcium, Blood 9.4 mg/dL (8.5-10.1); Creatinine, Blood 0.68 mg/dL (0.40-1.00); Potassium, Blood 4.1 mmol/L (3.5-5.5); Total Protein, Blood 7.3 g/dL (6.4-8.2)
[2024-06-11 06:34] LABS: Bacteria Mod /hpf; Red Blood Cells, Urine 0-2 /hpf (0-2); Squamous Epithelial Cells Rare /hpf (Few)
[2024-06-11] MEDS ORDERED: Cephalexin Monohydrate 500 MG Cap PO ONE (06:45)
[2024-06-11] MEDS ORDERED: Polyethylene Glycol 3350 17 gm PO PRN (16:00)
[2024-06-11] MEDS ORDERED: FLU VACC TS2024-25(6MOS UP)/PF 45 MCG/0.5 ML SYRINGE IM PRN (16:00)
[2024-06-11] MEDS ORDERED: Acetaminophen 500 MG Tab PO PRN (16:05)
[2024-06-11 17:06] VITALS: BP 146/77
--- NOTE | 2024-06-11 18:25 | NUR ---
SHIFT SUMMARY PT ARRIVED ON UNIT AT 1654. PT A&OX3 HX OF DEMENTIA AND HAS CONFUSION. COULDN'T RECAL DAY OF WEEK AND NAME OF HOSPITAL SHE IS AT. PT IS ADMITTED DUE TO MULTIPLE F[place]S. PT HAS WOUND ON R BARNARD, PHOTO IS IN CHART. DR. GUSMAN ORDERED NO IV DUE TO PT RECEIVING ORAL MEDS AND ED NURSE REPORTED PT PULLING OUT IV. CALLED PT CAREGIVER AND MEDS ARE RECONCILED. CAREGIVER REPORTED WILL BRING PT GLASSES TOMORROW. PT REPORTS LOOSING WEIGHT IN THE LAST 3 MONTHS, AND NOT HAVING MUCH OF AN APPETITE AT DINNER TIME. PT REPORTS HX OF HALF PACK A DAY OF CIGARETTES BUT DECLINED NICOTINE PATCH NEED. PT REPORTS INC. WITH URGENCY AND FREQ. WITH URINE. PT REPORTS NO PAIN WHEN VOIDING. PT IS A SBA, USES BSC. PT BED IN LOWEST POSITION, CALL LIGHT IN REACH. PLAN IS TO WAIT FOR INSURANCE AUTH.
[2024-06-11 19:38] VITALS: BP 134/79
[2024-06-11] MEDS ORDERED: Docusate Sodium/Senna 1 Tab PO SCH (21:00)
[2024-06-12 04:31] VITALS: BP 143/69
[2024-06-12 04:50] LABS: Hematocrit 38.5 % (33.0-51.0); Hemoglobin 12.8 g/dL (11.5-16.0); Mean Corpuscular HGB 31.8 pg (26.0-34.0); Mean Corpuscular HGB Conc 33.2 g/dL (31.5-36.5); Mean Corpuscular Volume 96 fL (80-100); Mean Platelet Volume 9.7 fL (9.1-12.4); Platelet Count 289 K/mm3 (150-400); RDW Standard Deviation 46.1 fL (35.1-46.3); Red Blood Cell Count 4.02 M/mm3 (3.80-5.20); White Blood Cell Count 8.54 K/mm3 (4.00-11.30)
--- NOTE | 2024-06-12 05:10 | NUR ---
SHIFT SUMMARY PT ALERT, OX3- FORGETFUL AND CONFUSED AT TIMES. SLEPT LONG INTERVALS THROUGH THE NIGHT. MEDICATED WITH TYLENOL X1 FOR C/O GAMBLE AND BACK PAIN- SEE EMAR. PT TURNS WELL IN BED. UP TO BSC WITH 1 MODERATE ASSIST. PT DOES HAVE URGE INCONTINENCE. BED IN LOWEST POSITION, BED ALARM ON, CALL LIGHT WITHIN REACH, SIDE RAILS UP X2.
[2024-06-12 05:14] LABS: Anion Gap 11 mmol/L (3-11); Blood Urea Nitrogen 14 mg/dL (8-24); Bun/Creatinine Ratio 22.1 (12.0-20.0); CO2, Blood 25 mmol/L (21-32); Chloride, Blood 110 mmol/L (98-108); Creatinine, Blood 0.63 mg/dL (0.40-1.00); Glomerular Filtration Rate 91 (60-); Glucose, Blood 96 mg/dL (70-99); Phosphorus, Blood 3.2 mg/dL (2.5-4.9); Potassium, Blood 3.6 mmol/L (3.5-5.5); Sodium, Blood 142 mmol/L (136-145)
[2024-06-12 07:57] VITALS: BP 133/79
[2024-06-12] MEDS ORDERED: Enoxaparin 40 MG/0.4 ML SYR SC SCH (09:00)
[2024-06-12] MEDS ORDERED: Cholecalciferol 1000 Unit Tablet (=25MCG) PO SCH (09:00)
[2024-06-12 14:36] VITALS: BP 123/79
--- NOTE | 2024-06-12 17:04 | NUR ---
SHIFT SUMMARY PT A&OX3, VSS, 1P PIVOT ASSIST TO THE BSC, TOLERATING PO, VOIDING, AND PAIN MANAGED PER EMAR. NO ACUTE CHANGES. CALL LIGHT WITHIN REACH AND BED ALARM ON FOR SAFEY.
[2024-06-12 19:43] VITALS: BP 128/71
[2024-06-13 02:11] VITALS: BP 145/72
--- NOTE | 2024-06-13 06:42 | NUR ---
SHIFT SUMMARY PT IS ALERT AND ORIENTED TIMES 3. PT IS DNR. FALL RISK. HX OF CLOSED HIP FRACTURE, DEMENTIA, GERD, AND DEPRESSION. NO IV ACCESS. 1 PERSON ASSIST TO BSC. POSSIBLE DISCHARGE TO [facility] FRIDAY OR FRIDAY. BED IN LOW POSITION, RAILS TIMES 2, CALL LIGHT WITHIN REACH.
[2024-06-13 07:57] VITALS: BP 140/83
[2024-06-13 15:45] VITALS: BP 101/71
--- NOTE | 2024-06-13 17:22 | NUR ---
SHIFT SUMMARY PT IS A/OX3, PLEASANTLY CONFUSED. NO ACUTE CHANGES THROUGHOUT THIS SHIFT. NO IV ACCESS, NO TELE. PT REMAINS ON RA, SATS MAINTAINING >95%. PT IS A 1 PERSON ASSIST TO THE BSC, CONTINENT OF BOWELS AND BLADDER. PT RESTING IN BED THROUGHOUT MUCH OF THE SHIFT.
[2024-06-13 21:20] VITALS: BP 118/57
[2024-06-14 03:09] VITALS: BP 132/70
[2024-06-14 07:17] VITALS: BP 131/76
--- NOTE | 2024-06-14 09:00 | NUR ---
Pt laying in bed awake eating breakfast, a/ox 2-3, forgetful, pleasant and cooperative with care, follows commands well, denies pain, states she slept ok last night, lungs are clear in upper [place], dim in bases, resp even and unlabored, no cough noted, hrr, no edema noted, ppp+1, cap refill <3 sec, vs stable, afebrile, btx4, states she had a bm yesterday, voids via bsc/briefs, skin c/w/d, maew, weak, morena, call light in reach.
[2024-06-14 14:18] LABS: CORONAVIRUS COVID-19 AG Negative (NEGATIVE)
[2024-06-14 15:19] VITALS: BP 120/78
--- NOTE | 2024-06-14 17:44 | NUR ---
pt has been transfered to [facility] via wheelchair van, motor coach driver has packet, has all her belongings, report was called to [facility].
== END 2024-06-14 17:43 ==
LOC: ER 03:36 → MEDS 03:38 → ER 15:58 → MEDS 16:58
PROVIDERS: Student in an Organized Health Care Education/Training Program; ADMIT Internal Medicine
DX: S72.002A Fracture of unspecified part of neck of left femur, initial encounter for closed fracture (principal); K21.9 Gastro-esophageal reflux disease without esophagitis; F03.90 Unspecified dementia, unspecified severity, without behavioral disturbance, psychotic disturbance, mood disturbance, and anxiety; Z88.8 Allergy status to other drugs, medicaments and biological substances; Z66 Do not resuscitate; Z72.0 Tobacco use; Z79.899 Other long term (current) drug therapy; W18.30XA Fall on same level, unspecified, initial encounter
CPT/HCPCS: 36415; 70450; 70496; 71045; 80053; 80069; 81001; 83735; 84484; 85025; 85027; 87426-QW; 93005; 93010; 96372; 97110; 97116; 97129; 97161; 97165; 97530; 99285-25; A9270; G0378; J1650; Q9967

== ENCOUNTER 2024-08-26 08:47 | Emergency (ER) | payer OTHER ==
[~2024-08-26] VITALS: Ht 165.1 cm; Wt 51.7 kg
[2024-08-26] MEDS ORDERED: Acetaminophen 325 MG TABLET PO ONE (14:20)
[2024-08-26 15:42] VITALS: BP 164/81
== END 2024-08-26 15:58 | disposition home or self-care (01) ==
LOC: ER 08:47
DX: S01.21XA Laceration without foreign body of nose, initial encounter (principal); S63.502A Unspecified sprain of left wrist, initial encounter; G47.00 Insomnia, unspecified; F17.210 Nicotine dependence, cigarettes, uncomplicated; Z79.1 Long term (current) use of non-steroidal anti-inflammatories (NSAID); Z79.899 Other long term (current) drug therapy; Z79.891 Long term (current) use of opiate analgesic; Z88.9 Allergy status to unspecified drugs, medicaments and biological substances; W18.30XA Fall on same level, unspecified, initial encounter
CPT/HCPCS: 70450; 72125; 73110; A9270

== ENCOUNTER 2024-09-07 18:26 | Emergency (ER) | payer OTHER ==
[~2024-09-07] VITALS: Ht 165.1 cm; Wt 48.1 kg
[2024-09-07 19:30] LABS: BASOPHILS ABSOLUTE AUTO 0.05 K/mm3 (0.00-0.23); BASOPHILS PERCENT AUTO 1 % (0-2); EOSINOPHILS ABSOLUTE AUTO 0.27 K/mm3 (0.00-0.68); EOSINOPHILS PERCENT AUTO 3 % (0-6); Hematocrit 39.1 % (33.0-51.0); Hemoglobin 12.8 g/dL (11.5-16.0); IMMATURE GRAN ABSOLUTE AUTO 0.02 K/mm3 (0.00-0.10); IMMATURE GRAN PERCENT AUTO 0 % (0-1); LYMPHOCYTES PERCENT AUTO 29 % (21-46); MONOCYTES ABSOLUTE AUTO 0.59 K/mm3 (0.16-1.47); MONOCYTES PERCENT AUTO 6 % (4-13); Mean Corpuscular HGB 31.4 pg (26.0-34.0); Mean Corpuscular HGB Conc 32.7 g/dL (31.5-36.5); Mean Corpuscular Volume 96 fL (80-100); Mean Platelet Volume 9.6 fL (9.1-12.4); NEUTROPHILS ABSOLUTE AUTO 5.87 K/mm3 (1.96-9.15); NEUTROPHILS PERCENT AUTO 61 % (41-73); Platelet Count 372 K/mm3 (150-400); RDW Standard Deviation 49.5 fL (35.1-46.3); Red Blood Cell Count 4.08 M/mm3 (3.80-5.20)
[2024-09-07 19:59] LABS: Albumin, Blood 3.5 g/dL (3.4-5.0); Albumin/Globulin Ratio 0.9 (0.8-1.8); Bilirubin, Total 0.2 mg/dL (0.1-1.0); Bun/Creatinine Ratio 19.9 (12.0-20.0); Calcium, Blood 9.4 mg/dL (8.5-10.1); Creatinine, Blood 0.7 mg/dL (0.40-1.00); Globulin, Blood 3.9 g/dL (2.2-4.0); Potassium, Blood 4.4 mmol/L (3.5-5.5); Total Protein, Blood 7.4 g/dL (6.4-8.2)
[2024-09-07 22:08] LABS: Source, Urine Clean Catch
[2024-09-07 22:15] LABS: Bilirubin, Urine Neg (Neg); Blood, Urine Neg (Neg); Glucose Qualitative, Urine Neg (Neg); Ketones, Urine Neg (Neg); Leukocyte Esterase, Urine 1+ (Neg); Nitrite, Urine Neg (Neg); Protein, Urine Neg (Neg); Urobilinogen, Urine NORM (Normal)
[2024-09-07 22:26] LABS: Free Thyroxine 1.09 ng/dL (0.70-1.60); Magnesium, Blood 2.2 mg/dL (1.6-2.4); Thyroid Stimulating Hormone 2.24 uIU/mL (0.360-4.800)
[2024-09-07 22:47] LABS: Appearance, Urine Clear (Clear); Color, Urine Yellow (P-Yellow)
[2024-09-07 22:51] LABS: Bacteria Few /hpf; Red Blood Cells, Urine 0-2 /hpf (0-2); Squamous Epithelial Cells Few /hpf (Few); White Blood Cells, Urine 0-2 /hpf (0-5)
[2024-09-07 23:39] VITALS: BP 133/80
[2024-09-10 08:09] LABS: MYOGLOBIN SERUM 26 ng/mL (<=58)
== END 2024-09-08 00:26 | disposition home or self-care (01) ==
LOC: ER 18:26
PROVIDERS: Emergency Medicine; Physician Assistant
DX: R53.1 Weakness (principal); G62.9 Polyneuropathy, unspecified; F17.210 Nicotine dependence, cigarettes, uncomplicated; Z79.1 Long term (current) use of non-steroidal anti-inflammatories (NSAID); Z79.899 Other long term (current) drug therapy; Z79.891 Long term (current) use of opiate analgesic; Z88.9 Allergy status to unspecified drugs, medicaments and biological substances
CPT/HCPCS: 80053; 81001; 82550; 83735; 83874; 84439; 84443; 85025; 87086; 93005; 93010; 99285-25

== ENCOUNTER → 2025-02-16 | Day surgery (SDC) | payer OTHER ==
[~2025-02-16] MED LIST changes: +Lidocaine HCl 4% Cream 5 GM ONE
== END | disposition home or self-care (01) ==
LOC: WOUND
DX: L89.523 Pressure ulcer of left ankle, stage 3 (principal); Z72.0 Tobacco use
CPT/HCPCS: A6213; A9270; G0463

== ENCOUNTER 2025-03-03 01:59 | Day surgery (SDC) | payer OTHER ==
[~2025-03-03 01:59] MED LIST changes: -Lidocaine HCl 4% Cream 5 GM ONE
[2025-03-03] MEDS ORDERED: Lidocaine HCl 4% Cream 5 GM ONE (09:25)
== END 2025-03-03 23:00 | disposition home or self-care (01) ==
LOC: WOUND 01:59
DX: L89.523 Pressure ulcer of left ankle, stage 3 (principal); Z72.0 Tobacco use
CPT/HCPCS: A6213; A9270

== ENCOUNTER 2025-03-11 03:01 | Day surgery (SDC) | payer OTHER ==
[2025-03-11] MEDS ORDERED: Lidocaine HCl 4% Cream 5 GM ONE (09:14)
== END 2025-03-11 23:00 | disposition home or self-care (01) ==
LOC: WOUND 03:01
DX: L89.523 Pressure ulcer of left ankle, stage 3 (principal); Z72.0 Tobacco use
CPT/HCPCS: A6213; A9270

== ENCOUNTER 2025-03-28 02:17 | Day surgery (SDC) | payer OTHER ==
[2025-03-28] MEDS ORDERED: Lidocaine HCl 4% Cream 5 GM ONE (13:34)
== END 2025-03-28 23:00 | disposition home or self-care (01) ==
LOC: WOUND 02:17
DX: L89.523 Pressure ulcer of left ankle, stage 3 (principal); Z72.0 Tobacco use
CPT/HCPCS: A6213; A9270

== ENCOUNTER 2025-04-12 02:34 | Day surgery (SDC) | payer OTHER | END 2025-04-12 22:00 | disposition home or self-care (01) | LOC: WOUND 02:34 | DX: L89.523 Pressure ulcer of left ankle, stage 3 (principal); Z72.0 Tobacco use | CPT/HCPCS: G0463 ==

== ENCOUNTER 2025-04-26 01:47 | Day surgery (SDC) | payer OTHER | END 2025-04-26 23:00 | disposition home or self-care (01) | LOC: WOUND 01:47 | DX: L89.893 Pressure ulcer of other site, stage 3 (principal) | CPT/HCPCS: G0463 ==